=== PATIENT | female | born 1995 | race Caucasian/White ===

== ENCOUNTER 2019-10-04 18:34 | Emergency (ER) | payer OTHER, BC ==
[~2019-10-04] VITALS: Ht 160 cm; Wt 81.6 kg
[2019-10-04 18:55] VITALS: BP_SYST 174
--- NOTE | 2019-10-04 18:59 | NUR ---
Patient to ER bed 4 to gown for evaluation. Side rails up.
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
[2019-10-04] MEDS ORDERED: IBUPROFEN 600 MG TABLET PO ONE (19:15)
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
[2019-10-04] MEDS ORDERED: LIDOCAINE 1% 10 MG/ML, 20 ML MDV INJ ONE (20:00)
[2019-10-04] MEDS ORDERED: HYDROcodone/ACETAMIN 5-325 MG TAB (NORCO/ VICODIN) PO ONE (20:15)
[2019-10-04] MEDS ORDERED: DIPH-TET-PERTUS Vaccine 0.5 ML VIAL (ADACEL) I.M. ONE (20:15)
--- NOTE | 2019-10-04 20:41 | NUR ---
Dr. Pringle at bedside to perform suturing.
[2019-10-04] MEDS ORDERED: LIDOCAINE 1%, 20 ML MDV 0 ML ONE (20:54)
--- NOTE | 2019-10-04 21:15 | NUR ---
Laceration well approximated with [address] Pringle. No active bleeding noted. Site cleaned with NS and iodine, bacitracin applied, covered with non-adherent dsg, splint to be applied.
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
--- NOTE | 2019-10-04 21:50 | NUR ---
Splint applied, cap refil < 3 sec, no loss in sensation.
[2019-10-04 22:26] VITALS: BP_SYST 134
--- NOTE | 2019-10-04 22:26 | NUR ---
Patient given written and verbal discharge instructions and verbalizes understanding. ER MD discussed with patient the results and treatment provided. Patient in stable condition. ID arm band removed. Rx of Zofran and [place] given. Patient educated on pain management and to follow up with PMD. Pain Scale 0. Opportunity for questions provided and answered. Medication side effect fact sheet provided.
== END 2019-10-04 22:26 | disposition still patient (30) ==
LOC: SED 18:34
DX: S52.501A Unspecified fracture of the lower end of right radius, initial encounter for closed fracture (principal); S66.921A Laceration of unspecified muscle, fascia and tendon at wrist and hand level, right hand, initial encounter; S60.221A Contusion of right hand, initial encounter; V49.40XA Driver injured in collision with unspecified motor vehicles in traffic accident, initial encounter; Y93.89 Activity, other specified; Y92.89 Other specified places as the place of occurrence of the external cause; Y99.8 Other external cause status
CPT/HCPCS: 12042; 73110; 73130; 81025; 90471; 90715; 99284; J2001

== ENCOUNTER 2021-04-15 23:23 | Emergency (ER) | payer BC ==
[~2021-04-15] VITALS: Ht 160 cm; Wt 64.4 kg
[2021-04-15 23:25] VITALS: BP_SYST 148
[2021-04-16 02:19] LABS: BASOPHILS # (AUTO) 0.1 K/uL (0.0-0.2); BASOPHILS % (AUTO) 0.8 % (0.0-2.0); EOSINOPHILS # (AUTO) 0.1 K/uL (0.0-0.4); EOSINOPHILS % (AUTO) 0.9 % (0.0-4.0); HEMATOCRIT 38.1 % (36-48); HEMOGLOBIN 12.6 g/dL (12.0-16.0); LYMPHOCYTES # (AUTO) 3.2 K/uL (1.0-5.5); LYMPHOCYTES % (AUTO) 38.1 % (20.5-51.5); MEAN CORPUSCULAR HEMOGLOBIN 30 pg (27-31); MEAN CORPUSCULAR HGB CONC 33 % (32-36); MEAN CORPUSCULAR VOLUME 90 fL (79.0-98.0); MONOCYTES # (AUTO) 0.6 K/uL (0.0-1.0); MONOCYTES % (AUTO) 6.6 % (1.7-9.3); NEUTROPHILS # (AUTO) 4.5 K/uL (1.8-7.7); NEUTROPHILS % (AUTO) 53.6 % (40.0-70.0); PLATELET COUNT (AUTO) 277 K/uL (130-430); RED BLOOD CELL COUNT(AUTO) 4.23 MIL/uL (4.2-6.2); WHITE BLOOD COUNT (AUTO) 8.4 K/uL (4.8-10.8)
[2021-04-16 02:22] LABS: CALCIUM 8.8 mg/dL (8.4-11.0); CREATININE 0.82 mg/dL (0.55-1.30); POTASSIUM 4.2 mmol/L (3.5-5.1)
[2021-04-16 02:25] LABS: PROTHROMBIN TIME 9.9 SECS (9.5-12.5)
[2021-04-16 02:28] LABS: ALBUMIN 3.8 g/dL (3.4-4.8); TOTAL BILIRUBIN 0.3 mg/dL (0.0-1.0)
[2021-04-16] MEDS ORDERED: IBUPROFEN 600 MG TABLET PO ONE (04:45)
[2021-04-16 05:34] VITALS: BP_SYST 148
== END 2021-04-16 05:30 | disposition home or self-care (01) ==
LOC: SED 23:23
DX: S06.0X0A Concussion without loss of consciousness, initial encounter (principal); W22.8XXA Striking against or struck by other objects, initial encounter; Y93.89 Activity, other specified; Y92.89 Other specified places as the place of occurrence of the external cause; Y99.0 Civilian activity done for income or pay
CPT/HCPCS: 36415; 70450-TC; 72125-TC; 76376; 80053; 85025; 85610-TC; 99291